=== PATIENT | male | born 2000 | race Caucasian/White ===

== ENCOUNTER 2023-04-08 11:04 | Emergency (ER) | payer OTHER ==
[~2023-04-08] VITALS: Ht 177.8 cm; Wt 82.1 kg
[2023-04-08 13:05] VITALS: BP 132/75; TEMP 98.5; O2SAT 99
== END 2023-04-08 12:58 | disposition home or self-care (01) ==
LOC: ER 11:22
DX: S06.0XAA Concussion with loss of consciousness status unknown, initial encounter (principal); Z60.2 Problems related to living alone; W23.0XXA Caught, crushed, jammed, or pinched between moving objects, initial encounter; Y93.89 Activity, other specified; Y92.89 Other specified places as the place of occurrence of the external cause; Y99.8 Other external cause status
CPT/HCPCS: 70450-TC

== ENCOUNTER 2024-06-17 11:56 | Inpatient (IN) | payer OTHER ==
[~2024-06-17] VITALS: Ht 177.8 cm; Wt 76.8 kg
[2024-06-17] MEDS ORDERED: ONDANSETRON HCL/PF 4 MG/2 ML VIAL ONE ×2 (12:44→16:37)
[2024-06-17] MEDS ORDERED: MORPHINE SULFATE INJ 4 MG/ML DISP.SYRIN ONE ×3 (12:45→20:29)
[2024-06-17] MEDS: IV NS 0.9% 1,000 ML BAG IV ONE (12:57)
[2024-06-17] MEDS: MORPHINE SULFATE INJ 2 MG/ML DISP.SYRIN IV ONE ×2 (12:57→16:47)
[2024-06-17] MEDS: ONDANSETRON HCL/PF 4 MG/2 ML VIAL IVP ONE (12:58)
[2024-06-17 13:12] LABS: APPEARANCE,URINE CLEAR (CLEAR); BILIRUBIN,URINE 1+ (NEGATIVE); BLOOD, URINE NEGATIVE Ery/uL (NEGATIVE); COLOR,URINE DARK YELLOW (YELLOW); KETONES,URINE 3+ mg/dL (NEGATIVE); LEUKOCYTE ESTERASE ,URINE NEGATIVE (NEGATIVE); NITRITE, URINE NEGATIVE (NEGATIVE); PROTEIN,URINE 1+ mg/dl (NEGATIVE); UGLUCOSE NEGATIVE (NEGATIVE); UROBILINOGEN,URINE 0.2 EU/dL (0.2)
[2024-06-17 13:21] LABS: CALCIUM, SERUM 9.8 mg/dL (8.5-10.1); CREATININE 1.3 mg/dL (0.6-1.3); POTASSIUM 3.7 mmol/L (3.5-5.1)
[2024-06-17 13:26] LABS: ALBUMIN 4.4 g/dL (3.4-5.0); BILIRUBIN,DIRECT 0.3 mg/dL (0.0-0.2); BILIRUBIN,TOTAL 1.1 mg/dL (0.2-1.0); TOTAL PROTEIN, SERUM 8.2 g/dL (6.4-8.2)
[2024-06-17 13:29] LABS: ADD URINE CULTURE NO; BACTERIA,URINE Few /HPF (None Seen); MUCUS,URINE Moderate /LPF (None Seen); RBC,URINE 0-2 /HPF (0-2)
[2024-06-17 13:31] LABS: BASOPHILS % (AUTO) 0.1 % (0.0-2.0); HEMATOCRIT 47 % (39-51); HEMOGLOBIN 16.7 g/dL (13.5-17.5); LYMPHOCYTES # (AUTO) 1.4 K/uL (0.8-4.8); LYMPHOCYTES % (AUTO) 8.2 % (20.0-44.0); MEAN CORPUSCULAR HEMOGLOBIN 30 PG (26.0-33.0); MEAN CORPUSCULAR HGB CONC 36 g/dl (31.0-36.0); MEAN CORPUSCULAR VOLUME 83 fL (80-96); MONOCYTES # (AUTO) 1.4 K/uL (0.1-1.30); MONOCYTES % (AUTO) 8.6 % (2.0-12.0); NEUTROPHILS # (AUTO) 13.9 K/uL (1.8-8.9); NEUTROPHILS % (AUTO) 83.1 % (43.0-81.0); PLATELET COUNT (AUTO) 287 K/uL (150-450); RED BLOOD CELL COUNT(AUTO) 5.66 MIL/uL (4.5-6.0); RED CELL DISTRIBUTION WIDTH 13.7 % (11.5-15.0); WHITE BLOOD COUNT (AUTO) 16.8 K/uL (4.3-11.0)
[2024-06-17] MEDS ORDERED: PIPERACI/TAZO 3.375GM/D5W 50ML PB IV ONE (14:18)
[2024-06-17] MEDS: PIPERACILLIN /TAZOBACTAM 3.375 G in IV D5W 50 ML IV ONE (14:20)
[2024-06-17] MEDS ORDERED: IOHEXOL-300 100 ML VIAL IV ONE (16:39)
[2024-06-17] MEDS ORDERED: IV NS 0.9% 250 ML IV ONE (16:39)
[2024-06-17] MEDS: ONDANSETRON HCL/PF - ER 4 MG/2 ML VIAL IV ONE (16:48)
[2024-06-17] MEDS ORDERED: AMPH15TA2 PO (19:09)
[2024-06-17] MEDS: MORPHINE SULFATE INJ 4 MG/ML DISP.SYRIN IV PRN (20:33)
[2024-06-17 21:00] VITALS: BP 142/103; TEMP 98.8; O2SAT 99
[2024-06-17] MEDS ORDERED: Z GUARD REMEDY 4 OZ OINT TP PRN (21:00)
[2024-06-17] MEDS ORDERED: Potassium Chloride 20 MEQ in IV D5/0.45 NACL 1,000 ML IV SCH (21:00)
[2024-06-17] MEDS ORDERED: ONDANSETRON HCL/PF 4 MG/2 ML VIAL IVP PRN (21:00)
[2024-06-17] MEDS ORDERED: ACETAMINOPHEN 650 MG/SUPP.RECT RC PRN (21:00)
[2024-06-17] MEDS: IV NS 0.9% 1,000 ML IV PRN (21:27)
[2024-06-17] MEDS: PIPERACILLIN /TAZOBACTAM 3.375 G in IV D5W 50 ML IV SCH (23:22)
[2024-06-17] MEDS: ZOLPIDEM TARTRATE 5 MG TABLET PO PRN (23:43)
[2024-06-18] MEDS: MORPHINE SULFATE INJ 2 MG/ML DISP.SYRIN IV PRN (02:48)
[2024-06-18 07:00] VITALS: BP 133/82; TEMP 99.9; O2SAT 95
[2024-06-18 08:02] LABS: CALCIUM, SERUM 9.1 mg/dL (8.5-10.1); CREATININE 1.1 mg/dL (0.6-1.3); PHOSPHORUS 3.3 mg/dL (2.5-4.9); POTASSIUM 3.8 mmol/L (3.5-5.1)
[2024-06-18 08:22] LABS: HEMATOCRIT 47 % (39-51); HEMOGLOBIN 16.1 g/dL (13.5-17.5); LYMPHOCYTES # (AUTO) 0.3 K/uL (0.8-4.8); MEAN CORPUSCULAR HEMOGLOBIN 29 PG (26.0-33.0); MEAN CORPUSCULAR HGB CONC 35 g/dl (31.0-36.0); MEAN CORPUSCULAR VOLUME 83 fL (80-96); MONOCYTES # (AUTO) 1.2 K/uL (0.1-1.30); MONOCYTES % (AUTO) 7.5 % (2.0-12.0); NEUTROPHILS # (AUTO) 14.6 K/uL (1.8-8.9); NEUTROPHILS % (AUTO) 90.5 % (43.0-81.0); PLATELET COUNT (AUTO) 238 K/uL (150-450); RED BLOOD CELL COUNT(AUTO) 5.61 MIL/uL (4.5-6.0); RED CELL DISTRIBUTION WIDTH 13.5 % (11.5-15.0); WHITE BLOOD COUNT (AUTO) 16.1 K/uL (4.3-11.0)
[2024-06-18] MEDS: ACETAMINOPHEN 325 MG TABLET PO PRN (08:33)
[2024-06-18 08:42] LABS: INR 1.13 (0.91-1.10); PARTIAL THROMBOPLASTIN TIME 31.7 SEC (24.3-34.3); PROTHROMBIN TIME 11.9 SECS (9.2-11.1)
[2024-06-18] MEDS ORDERED: ROPIVACAINE HCL 0.5% 5 MG/ML 30ML VIAL ONE (10:44)
[2024-06-18] MEDS ORDERED: HYDROMORPHONE INJ 2 MG/ML DISP.SYRIN ONE (10:44)
[2024-06-18] MEDS ORDERED: FENTANYL PF 100MCG/2ML AMPUL ONE (10:44)
[2024-06-18] MEDS ORDERED: MIDAZOLAM HCL 2 MG/2ML VIAL ONE (10:45)
[2024-06-18] MEDS ORDERED: FAMOTIDINE/PF INJ 20 MG/2 ML VIAL IV ONE (10:45)
[2024-06-18] MEDS ORDERED: MEPERIDINE25 MG SYR 25 MG/ML VIAL ONE (10:45)
[2024-06-18] MEDS ORDERED: ANESTHESIA TRAY IN PYXIS 1 EA TRAY MC ONE (10:46)
[2024-06-18] MEDS ORDERED: LIDOCAINE 1% INJ 50 ML MDV IJ ONE (10:54)
[2024-06-18] MEDS ORDERED: BUPIVACAINE MPF W/EPI 0.25% 30 ML VIAL ONE ×2 (10:54→11:04)
[2024-06-18] MEDS ORDERED: LIDOCAINE 2% JEL UROJET 10 ML MM ONE (11:04)
[2024-06-18] MEDS ORDERED: FLUMAZENIL 0.5 MG VIAL ONE (12:37)
[2024-06-18 14:00] VITALS: BP 128/76; TEMP 98.1; O2SAT 96
[2024-06-18 16:00] VITALS: BP 124/85; TEMP 98.2; O2SAT 98
[2024-06-18 20:00] VITALS: BP 120/63; TEMP 98.8; O2SAT 96
[2024-06-18] MEDS: MAG HYDROX/AL HYDROX/SIMETH 30 ML UDC PO PRN (20:04)
[2024-06-19 07:00] VITALS: BP 121/78; TEMP 98.2; O2SAT 96
[2024-06-19 10:01] LABS: BASOPHILS % (AUTO) 0.1 % (0.0-2.0); HEMATOCRIT 40 % (39-51); HEMOGLOBIN 13.6 g/dL (13.5-17.5); LYMPHOCYTES # (AUTO) 0.7 K/uL (0.8-4.8); LYMPHOCYTES % (AUTO) 5.2 % (20.0-44.0); MEAN CORPUSCULAR HEMOGLOBIN 28 PG (26.0-33.0); MEAN CORPUSCULAR HGB CONC 34 g/dl (31.0-36.0); MEAN CORPUSCULAR VOLUME 84 fL (80-96); MONOCYTES # (AUTO) 0.7 K/uL (0.1-1.30); MONOCYTES % (AUTO) 5.5 % (2.0-12.0); NEUTROPHILS # (AUTO) 12.1 K/uL (1.8-8.9); NEUTROPHILS % (AUTO) 89.2 % (43.0-81.0); PLATELET COUNT (AUTO) 209 K/uL (150-450); RED BLOOD CELL COUNT(AUTO) 4.81 MIL/uL (4.5-6.0); RED CELL DISTRIBUTION WIDTH 13.4 % (11.5-15.0); WHITE BLOOD COUNT (AUTO) 13.5 K/uL (4.3-11.0)
[2024-06-19] MEDS: POLYVINYL ALCOHOL 15 ML BOTTLE RIGHTEYE PRN (10:05)
[2024-06-19] MEDS: MELOXICAM 7.5 MG TABLET PO SCH (10:08)
[2024-06-19] MEDS: PREGABALIN 25 MG CAPSULE PO SCH (10:08)
[2024-06-19] MEDS: HYDROCODONE/APAP 10/325MG TABLET PO PRN (10:28)
[2024-06-19 10:59] LABS: ALBUMIN 2.7 g/dL (3.4-5.0); BILIRUBIN,DIRECT 0.4 mg/dL (0.0-0.2); CALCIUM, SERUM 8.7 mg/dL (8.5-10.1); CREATININE 1.2 mg/dL (0.6-1.3); MAGNESIUM 2.4 mg/dL (1.8-2.4); PHOSPHORUS 1.8 mg/dL (2.5-4.9); POTASSIUM 3.8 mmol/L (3.5-5.1); TOTAL PROTEIN, SERUM 6.5 g/dL (6.4-8.2)
[2024-06-19] MEDS: PIPERACILLIN /TAZOBACTAM 3.375 G in IV D5W 100 ML IV SCH (14:04)
[2024-06-19] MEDS: K PHOS NEUTRAL 250 MG TABLET PO ONE (15:41)
[2024-06-19 16:00] VITALS: BP 125/73; TEMP 100.2; O2SAT 96
[2024-06-19] MEDS: MAGNESIUM HYDROXIDE 30 ML UDC PO PRN (16:49)
[2024-06-19 20:00] VITALS: BP 141/84; TEMP 99.3; O2SAT 98
[2024-06-20 06:40] VITALS: TEMP 101
[2024-06-20 07:02] LABS: BASOPHILS % (AUTO) 0.1 % (0.0-2.0); EOSINOPHILS % (AUTO) 0.2 % (0.0-6.0); HEMATOCRIT 38 % (39-51); HEMOGLOBIN 13.1 g/dL (13.5-17.5); LYMPHOCYTES # (AUTO) 0.5 K/uL (0.8-4.8); LYMPHOCYTES % (AUTO) 4.7 % (20.0-44.0); MEAN CORPUSCULAR HEMOGLOBIN 29 PG (26.0-33.0); MEAN CORPUSCULAR HGB CONC 34 g/dl (31.0-36.0); MEAN CORPUSCULAR VOLUME 83 fL (80-96); MONOCYTES # (AUTO) 0.8 K/uL (0.1-1.30); MONOCYTES % (AUTO) 6.7 % (2.0-12.0); NEUTROPHILS % (AUTO) 88.3 % (43.0-81.0); PLATELET COUNT (AUTO) 214 K/uL (150-450); RED CELL DISTRIBUTION WIDTH 13.4 % (11.5-15.0); WHITE BLOOD COUNT (AUTO) 11.3 K/uL (4.3-11.0)
[2024-06-20 07:10] LABS: CALCIUM, SERUM 9.1 mg/dL (8.5-10.1); CREATININE 1.2 mg/dL (0.6-1.3); MAGNESIUM 2.4 mg/dL (1.8-2.4); POTASSIUM 3.9 mmol/L (3.5-5.1)
[2024-06-20 08:32] VITALS: BP 134/79; TEMP 100.1; O2SAT 96
[2024-06-20 15:54] VITALS: BP 128/78; TEMP 100.8; O2SAT 99
[2024-06-20 20:00] VITALS: BP 134/87; TEMP 99.7; O2SAT 100
[2024-06-21 07:33] LABS: BASOPHILS % (AUTO) 0.1 % (0.0-2.0); EOSINOPHILS # (AUTO) 0.2 K/uL (0.0-0.7); EOSINOPHILS % (AUTO) 2.5 % (0.0-6.0); HEMATOCRIT 40 % (39-51); HEMOGLOBIN 13.8 g/dL (13.5-17.5); LYMPHOCYTES # (AUTO) 0.8 K/uL (0.8-4.8); LYMPHOCYTES % (AUTO) 9.5 % (20.0-44.0); MEAN CORPUSCULAR HEMOGLOBIN 29 PG (26.0-33.0); MEAN CORPUSCULAR HGB CONC 35 g/dl (31.0-36.0); MEAN CORPUSCULAR VOLUME 83 fL (80-96); MONOCYTES # (AUTO) 0.9 K/uL (0.1-1.30); MONOCYTES % (AUTO) 10.2 % (2.0-12.0); NEUTROPHILS # (AUTO) 6.7 K/uL (1.8-8.9); NEUTROPHILS % (AUTO) 77.7 % (43.0-81.0); PLATELET COUNT (AUTO) 252 K/uL (150-450); RED BLOOD CELL COUNT(AUTO) 4.81 MIL/uL (4.5-6.0); RED CELL DISTRIBUTION WIDTH 13.6 % (11.5-15.0); WHITE BLOOD COUNT (AUTO) 8.7 K/uL (4.3-11.0)
[2024-06-21 08:00] VITALS: BP 133/89; TEMP 99; O2SAT 98
[2024-06-21 08:30] VITALS: BP 133/89; TEMP 99; O2SAT 96
[2024-06-21 10:10] LABS: CALCIUM, SERUM 9.1 mg/dL (8.5-10.1); CREATININE 1.1 mg/dL (0.6-1.3); MAGNESIUM 2.4 mg/dL (1.8-2.4); PHOSPHORUS 3.2 mg/dL (2.5-4.9); POTASSIUM 3.3 mmol/L (3.5-5.1)
[2024-06-21] MEDS ORDERED: IV NS 0.9% 250 ML IV ONE (10:25)
[2024-06-21] MEDS ORDERED: IOHEXOL-300 100 ML VIAL IV ONE (10:26)
[2024-06-21 16:00] VITALS: BP 136/84; TEMP 100.4; O2SAT 98
[2024-06-21] MEDS: POTASSIUM CHLORIDE 20 MEQ TAB.PRT.SR PO ONE (17:20)
[2024-06-21 17:59] VITALS: TEMP 98.4
[2024-06-21 20:00] VITALS: BP 125/83; TEMP 99.3; O2SAT 99
[2024-06-22 04:45] VITALS: BP 128/83; TEMP 99.7; O2SAT 98
[2024-06-22 05:19] VITALS: BP 128/83; TEMP 99.7
[2024-06-22 06:32] LABS: BASOPHILS % (AUTO) 0.2 % (0.0-2.0); EOSINOPHILS # (AUTO) 0.3 K/uL (0.0-0.7); HEMATOCRIT 38 % (39-51); HEMOGLOBIN 12.8 g/dL (13.5-17.5); LYMPHOCYTES # (AUTO) 1.1 K/uL (0.8-4.8); LYMPHOCYTES % (AUTO) 13.3 % (20.0-44.0); MEAN CORPUSCULAR HEMOGLOBIN 29 PG (26.0-33.0); MEAN CORPUSCULAR HGB CONC 34 g/dl (31.0-36.0); MEAN CORPUSCULAR VOLUME 83 fL (80-96); MONOCYTES # (AUTO) 1.1 K/uL (0.1-1.30); MONOCYTES % (AUTO) 13.2 % (2.0-12.0); NEUTROPHILS % (AUTO) 70.3 % (43.0-81.0); PLATELET COUNT (AUTO) 261 K/uL (150-450); RED CELL DISTRIBUTION WIDTH 13.3 % (11.5-15.0); WHITE BLOOD COUNT (AUTO) 8.6 K/uL (4.3-11.0)
[2024-06-22 06:39] LABS: CREATININE 1.1 mg/dL (0.6-1.3); MAGNESIUM 2.2 mg/dL (1.8-2.4); PHOSPHORUS 3.4 mg/dL (2.5-4.9); POTASSIUM 3.6 mmol/L (3.5-5.1)
[2024-06-22 07:00] VITALS: BP 134/88; TEMP 98.1; O2SAT 97
[2024-06-22 20:00] VITALS: BP 131/83; TEMP 98.2; O2SAT 98
[2024-06-22 20:21] VITALS: BP 131/83; TEMP 98.2; O2SAT 98
[2024-06-23 07:28] LABS: BASOPHILS % (AUTO) 0.3 % (0.0-2.0); EOSINOPHILS # (AUTO) 0.3 K/uL (0.0-0.7); EOSINOPHILS % (AUTO) 3.4 % (0.0-6.0); HEMATOCRIT 39 % (39-51); HEMOGLOBIN 13.6 g/dL (13.5-17.5); LYMPHOCYTES # (AUTO) 1.3 K/uL (0.8-4.8); LYMPHOCYTES % (AUTO) 15.1 % (20.0-44.0); MEAN CORPUSCULAR HEMOGLOBIN 29 PG (26.0-33.0); MEAN CORPUSCULAR HGB CONC 35 g/dl (31.0-36.0); MEAN CORPUSCULAR VOLUME 83 fL (80-96); MONOCYTES # (AUTO) 1.1 K/uL (0.1-1.30); MONOCYTES % (AUTO) 12.7 % (2.0-12.0); NEUTROPHILS # (AUTO) 5.8 K/uL (1.8-8.9); NEUTROPHILS % (AUTO) 68.5 % (43.0-81.0); PLATELET COUNT (AUTO) 292 K/uL (150-450); RED BLOOD CELL COUNT(AUTO) 4.73 MIL/uL (4.5-6.0); RED CELL DISTRIBUTION WIDTH 13.6 % (11.5-15.0); WHITE BLOOD COUNT (AUTO) 8.5 K/uL (4.3-11.0)
[2024-06-23 07:48] LABS: INR 1.09 (0.91-1.10); PROTHROMBIN TIME 11.5 SECS (9.2-11.1)
[2024-06-23 08:04] LABS: ALBUMIN 2.4 g/dL (3.4-5.0); BILIRUBIN,DIRECT 0.1 mg/dL (0.0-0.2); BILIRUBIN,TOTAL 0.4 mg/dL (0.2-1.0); CALCIUM, SERUM 8.9 mg/dL (8.5-10.1); CREATININE 0.9 mg/dL (0.6-1.3); MAGNESIUM 2.3 mg/dL (1.8-2.4); POTASSIUM 3.5 mmol/L (3.5-5.1); TOTAL PROTEIN, SERUM 6.7 g/dL (6.4-8.2)
[2024-06-23 08:35] VITALS: BP 132/84; TEMP 98.2; O2SAT 98
[2024-06-23] MEDS ORDERED: FLUMAZENIL 0.5 MG VIAL IV PRN (12:30)
[2024-06-23] MEDS ORDERED: MIDAZOLAM HCL 2 MG/2ML VIAL IV PRN (12:30)
[2024-06-23] MEDS ORDERED: NALOXONE PREFILLED SYRINGE 2 MG/2 ML SYRINGE IV PRN (12:30)
[2024-06-23] MEDS ORDERED: FENTANYL PF 250MCG/5ML AMPUL IV PRN (12:30)
[2024-06-23] MEDS ORDERED: LIDOCAINE 1% INJ 50 ML MDV IJ ONE (15:03)
[2024-06-23 20:00] VITALS: BP 135/84; TEMP 98.8; O2SAT 97
[2024-06-24 08:00] VITALS: BP 139/84; TEMP 98.8; O2SAT 97
[2024-06-24 08:02] LABS: BASOPHILS % (AUTO) 0.1 % (0.0-2.0); EOSINOPHILS # (AUTO) 0.2 K/uL (0.0-0.7); EOSINOPHILS % (AUTO) 2.4 % (0.0-6.0); HEMATOCRIT 39 % (39-51); HEMOGLOBIN 13.1 g/dL (13.5-17.5); LYMPHOCYTES # (AUTO) 1.3 K/uL (0.8-4.8); LYMPHOCYTES % (AUTO) 14.3 % (20.0-44.0); MEAN CORPUSCULAR HEMOGLOBIN 28 PG (26.0-33.0); MEAN CORPUSCULAR HGB CONC 34 g/dl (31.0-36.0); MEAN CORPUSCULAR VOLUME 83 fL (80-96); MONOCYTES # (AUTO) 1.1 K/uL (0.1-1.30); MONOCYTES % (AUTO) 11.7 % (2.0-12.0); NEUTROPHILS # (AUTO) 6.5 K/uL (1.8-8.9); NEUTROPHILS % (AUTO) 71.5 % (43.0-81.0); PLATELET COUNT (AUTO) 355 K/uL (150-450); RED BLOOD CELL COUNT(AUTO) 4.68 MIL/uL (4.5-6.0); RED CELL DISTRIBUTION WIDTH 13.4 % (11.5-15.0); WHITE BLOOD COUNT (AUTO) 9.1 K/uL (4.3-11.0)
[2024-06-24 08:13] LABS: CALCIUM, SERUM 8.6 mg/dL (8.5-10.1); CREATININE 0.9 mg/dL (0.6-1.3); POTASSIUM 3.8 mmol/L (3.5-5.1)
[2024-06-24 16:00] VITALS: BP 111/69; TEMP 98.1; O2SAT 98
[2024-06-24 16:30] VITALS: BP 111/69; TEMP 98.1; O2SAT 98
[2024-06-24 20:00] VITALS: BP 119/70; TEMP 98.2; O2SAT 98
[2024-06-25 07:00] VITALS: BP_SYST 118; BP_SYST 134; BP_DIAS 83; TEMP 97.9; O2SAT 97
[2024-06-25 16:00] VITALS: BP 119/75; TEMP 97.7; O2SAT 98
[2024-06-25 20:00] VITALS: BP 125/88; TEMP 97.9; O2SAT 100
[2024-06-26 07:30] VITALS: BP 116/42; TEMP 98.1; O2SAT 98
[2024-06-26] MEDS ORDERED: PREG25CA PO (11:12)
[2024-06-26] MEDS ORDERED: HYDR-3980 PO (11:12)
[2024-06-26] MEDS ORDERED: MELO7.5T12 PO (11:12)
[2024-06-26] MEDS ORDERED: AMOX-430 PO (11:25)
== END 2024-06-26 13:45 | disposition home or self-care (01) | DRG 853 ==
LOC: ER 12:00 → MED 20:06 → TELE 20:35 → MED 21:02
PROVIDERS: ADMIT Nurse Practitioner Acute Care; ATTEND Nurse Practitioner Acute Care
PROC: 0DTJ4ZZ Resection of Appendix, Percutaneous Endoscopic Approach (ICD-10-PCS; principal; 2024-06-18 11:00)
PROC: 0W9G40Z Drainage of Peritoneal Cavity with Drainage Device, Percutaneous Endoscopic Approach (ICD-10-PCS; 2024-06-23)
DX: A41.9 Sepsis, unspecified organism (principal); K35.32 Acute appendicitis with perforation, localized peritonitis, and gangrene, without abscess; K65.1 Peritoneal abscess; R74.01 Elevation of levels of liver transaminase levels; Z86.0100 Personal history of colon polyps, unspecified
CPT/HCPCS: 36415; 71045-TC; 75989-TC; 80048-TC; 80076-TC; 81001; 83690-TC; 83735-TC; 84100-TC; 85025-TC; 85610-TC; 85730-TC; 86850-TC; 87040-TC; 87081-TC; 88108-TC; 88304-TC; 88305-TC; 88312-TC; 97116-TC; 97530-TC; A4223; G0378; J0690; J1100; J1171; J1308; J1885; J2175; J2250; J2270; J2405; J2543; J2704; J2765; J2795; J3010; J3480; J3490; J7030; J7050; J7060; Q9967

== ENCOUNTER 2024-12-17 11:39 | Emergency (ER) | payer OTHER ==
[~2024-12-17] VITALS: Ht 177.8 cm; Wt 79.4 kg
[~2024-12-17 11:39] MED LIST: AMOX-430 PO; AMPH15TA2 PO; HYDR-3980 PO; MELO7.5T12 PO; PREG25CA PO
[2024-12-17 12:35] VITALS: BP 128/64; TEMP 98; O2SAT 98
== END 2024-12-17 12:35 | disposition home or self-care (01) ==
LOC: ER 11:42
DX: S09.90XA Unspecified injury of head, initial encounter (principal); Z79.1 Long term (current) use of non-steroidal anti-inflammatories (NSAID); Z79.899 Other long term (current) drug therapy; Z87.820 Personal history of traumatic brain injury; Z90.49 Acquired absence of other specified parts of digestive tract